=== PATIENT | male | born 1970 | race Asian ===

== ENCOUNTER 2020-11-04 18:52 | Emergency (ER) | payer OTHER ==
[~2020-11-04] VITALS: Ht 160 cm; Wt 68.0 kg
[2020-11-04 19:26] LABS: BASOPHIL % 0.4 % (0.2-1.5); PLATELET COUNT 340 x10^3mcL (152-348); RED CELL DISTRIBUTION WIDTH 13.2 % (12.1-16.2)
[2020-11-04 19:35] LABS: CALCIUM 9.5 mg/dL (8.5-10.1); CARBON DIOXIDE 25.2 mmol/L (21-32); CHLORIDE SERUM 105 mmol/L (98-107); CREATININE SERUM 1.2 mg/dL (0.7-1.3); GFR1 > 60 mL/min; GLUCOSE SERUM 160 mg/dL (74-106); POTASSIUM SERUM 3.7 mmol/L (3.5-5.1); SODIUM SERUM 142 mmol/L (136-145)
[2020-11-04 19:38] LABS: ALKALINE PHOSPHATASE 43 U/L (46-116); ALT/SGPT 25 U/L (16-63); AMYLASE 50 U/L (25-115); AST/SGOT 29 U/L (15-37); BILIRUBIN TOTAL 0.4 mg/dL (0.20-1.00); LIPASE 108 IU/L (73-393); TOTAL PROTEIN, SERUM 7.5 g/dL (6.4-8.2)
[2020-11-04 19:41] VITALS: Ht 160 cm; Wt 68.0 kg
[2020-11-04 21:11] LABS: AMPHETAMINE QUAL UR NONE DETECTED (See below)
[2020-11-06 19:42] VITALS: BP 146/84
== END 2020-11-06 19:43 | disposition designated cancer center or children's hospital (05) ==
LOC: ED 18:52 → DU 11-06 12:41 → ED 11-06 19:43
PROVIDERS: Emergency Medicine; Hospitalist
DX: T48.4X2A Poisoning by expectorants, intentional self-harm, initial encounter (principal); T51.92XA Toxic effect of unspecified alcohol, intentional self-harm, initial encounter; F32.9 Major depressive disorder, single episode, unspecified; Z20.822 Contact with and (suspected) exposure to COVID-19; Y92.89 Other specified places as the place of occurrence of the external cause
CPT/HCPCS: G0480; J2405; U0003